=== PATIENT | male | born 1970 | race Caucasian/White ===

== ENCOUNTER 2016-10-04 20:23 | Emergency (ER) | payer BC ==
[2016-10-04 21:15] LABS: Urine Bilirubin Negative (Negative); Urine Glucose Negative (Negative); Urine Nitrite Negative (Negative)
[2016-10-04 21:53] LABS: Hematocrit 44 % (42-52); Mean Corpuscular HGB Conc 34 g/dl (31-36); Mean Corpuscular Hemoglobin 29 pg (27-31); Mean Corpuscular Volume 85 fL (80-94); Mean Platelet Volume 9 um3 (7.4-10.4); Red Blood Count 5.21 10^6/ul (4.0-5.4); Red Cell Distribution Width 14 % (10.5-15); White Blood Count 7.3 10^3/ul (3.5-10.8)
[2016-10-04] MEDS ORDERED: Ondansetron INJ* 2 MG/ML VIAL IV ONE (21:58)
[2016-10-04] MEDS ORDERED: NS 0.9% 1000 ML* 1,000 ML IV ONE (21:58)
[2016-10-04] MEDS ORDERED: Ondansetron INJ* 2 MG/ML VIAL ONE (22:06)
[2016-10-04 22:07] LABS: Albumin 4.3 g/dL (3.2-5.2); BUN/Creatinine Ratio 19.5 (8-20); EGFR Non-African American 94.9 (>60); Globulin 2.9 g/dL (2-4); Potassium 3.9 mmol/L (3.5-5.0); Total Bilirubin 0.5 mg/dL (0.2-1.0); Total Protein 7.2 g/dL (6.4-8.9)
[2016-10-04] MEDS ORDERED: Morphine INJ* 4 MG/ML 1 ML SYRINGE IV ONE (22:28)
--- NOTE | 2016-10-04 23:06 | ED ---
Alanna Jacobs Alok, scribed for Wes Whitmore MD on 10/04/16 at 2217 . Abdominal Pain/Male - HPI Summary HPI Summary: 46M presents to the ED with RLQ abd pain off an on since 2 days ago. Pt states that this pain which has been coming and going worsened this evening to the point of making ambulation difficulty, prompting his visit to the ED. Pt states that his abd pain worsens with movement and states he has never experienced this abd pain before. Pt notes nausea but denies vomit. Pt denies loss of appetite. Pt has NKDA. - History of Current Complaint Chief Complaint: EDAbdPain Stated Complaint: ABD PAIN Time Seen by Provider: 10/04/16 22:11 Hx Obtained From: Patient Onset/Duration: Lasting Days, Still Present, Worse Since - Tonight Severity Initially: Moderate Severity Currently: Moderate Pain Intensity: 3 Pain Scale Used: 0-10 Numeric Location: Discrete At: RLQ Aggravating Factor(s): Movement Alleviating Factor(s): Nothing Associated Signs And Symptoms: Positive: Nausea. Negative: Fever, Vomiting - Allergies/Home Medications Allergies/Adverse Reactions: Allergies Allergy/AdvReac Type Severity Reaction Status Date / Time No Known Allergies Allergy Verified 04/22/15 07:32 PMH/Surg Hx/FS Hx/Imm Hx Endocrine/Hematology History: Denies: Hx Diabetes Cardiovascular History: Denies: Hx Hypertension, Hx Pacemaker/ICD History: Denies: Hx Renal Disease Sensory History: Denies: Hx Hearing Aid Psychiatric History: Denies: Hx Panic Disorder - Surgical History Surgery Procedure, Year, and Place: L4-5 DISKECTOMY Infectious Disease History: Denies: Traveled Outside the [place] in Last 30 Days - Family History Known Family History: Negative: Diabetes - Social History Occupation: Employed Full-time Lives: With Family Review of Systems Negative: Fever Positive: Abdominal Pain, Nausea. Negative: Vomiting All Other Systems Reviewed And Are Negative: Yes Physical Exam Triage Information Reviewed: Yes Vital Signs On Initial Exam: Initial Vitals Temp Pulse Resp BP 98.1 F 79 16 152/92 10/04/16 20:50 10/04/16 20:50 10/04/16 20:50 10/04/16 20:50 Vital Signs Reviewed: Yes Appearance: Positive: Well-Appearing, Pain Distress - mild discomfort Skin: Positive: Warm Head/Face: Positive: Normal Head/Face Inspection Eyes: Positive: KAYLA ENT: Positive: Hearing grossly normal Neck: Positive: Supple Respiratory/Lung Sounds: Positive: Breath Sounds Present Cardiovascular: Positive: RRR Abdomen Description: Positive: No Organomegaly, Soft, McBurney's Point Tenderness - mild Bowel Sounds: Positive: Present Musculoskeletal: Positive: Strength/ROM Intact Neurological: Positive: Alert, Oriented to Person Place, Time Diagnostics - Vital Signs Vital Signs Temp Pulse Resp BP Pulse Ox 10/04/16 21:45 97.5 F 56 20 148/68 99 10/04/16 20:50 98.1 F 79 16 152/92 - Laboratory Lab Results: Lab Results 10/04/16 10/04/16 10/04/16 Range/Units 21:00 21:36 21:36 WBC 7.3 (3.5-10.8) 10^3/ul RBC 5.21 (4.0-5.4) 10^6/ul Hgb 15.0 (14.0-18.0) g/dl Hct 44 (42-52) % MCV 85 (80-94) fL MCH 29 (27-31) pg MCHC 34 (31-36) g/dl RDW 14 (10.5-15) % Plt Count 178 (150-450) 10^3/ul MPV 9 (7.4-10.4) um3 Neut % (Auto) 65.8 (38-83) % Lymph % (Auto) 25.0 (25-47) % [place] % (Auto) 6.9 (1-9) % Eos % (Auto) 1.6 (0-6) % Baso % (Auto) 0.7 (0-2) % Absolute Neuts (auto) 4.8 (1.5-7.7) 10^3/ul Absolute Lymphs (auto) 1.8 (1.0-4.8) 10^3/ul Absolute Monos (auto) 0.5 (0-0.8) 10^3/ul Absolute Eos (auto) 0.1 (0-0.6) 10^3/ul Absolute Basos (auto) 0 (0-0.2) 10^3/ul Absolute Nucleated RBC 0.01 10^3/ul Nucleated RBC % 0.1 Sodium 138 (133-145) mmol/L Potassium 3.9 (3.5-5.0) mmol/L Chloride 105 (101-111) mmol/L Carbon Dioxide 28 (22-32) mmol/L Anion Gap 5 (2-11) mmol/L BUN 17 (6-24) mg/dL Creatinine 0.87 (0.67-1.17) mg/dL Est GFR ( Amer) 122.0 (>60) Est GFR (Non-Af Amer) 94.9 (>60) BUN/Creatinine Ratio 19.5 (8-20) Glucose 92 (70-100) mg/dL Calcium 9.0 (8.6-10.3) mg/dL Total Bilirubin 0.50 (0.2-1.0) mg/dL AST 27 (13-39) U/L ALT 39 (7-52) U/L Alkaline Phosphatase 46 (34-104) U/L Total Protein 7.2 (6.4-8.9) g/dL Albumin 4.3 (3.2-5.2) g/dL Globulin 2.9 (2-4) g/dL Albumin/Globulin Ratio 1.5 (1-3) Urine Color Yellow Urine Appearance Clear Urine pH 5.0 (5-9) Ur Specific Reading 1.020 (1.010-1.030) Urine Protein Negative (Negative) Urine Ketones Negative (Negative) Urine Blood Negative (Negative) Urine Nitrate Negative (Negative) Urine Bilirubin Negative (Negative) Urine Urobilinogen Negative (Negative) Ur Leukocyte Esterase Negative (Negative) Urine Glucose Negative (Negative) Result Diagrams: 10/04/16 21:36 10/04/16 21:36 Lab Statement: Any lab studies that have been ordered have been reviewed, and results considered in the medical decision making process. - CT abd/pel CT CT Interpretation: Positive (See Comments) - IMPRESSION: Mild cecal inflammation and/or terminal ileitis versus epiploic appendagitis at the base of the cecum. Normal appendix. Fatty liver. Punctate left renal stone. CT Interpretation Completed By: Radiologist Re-Evaluation - Re-Evaluation First Eval Re-Evaluation Time: 02:00 Change: Improved Comment: Discussed pt CT results Abdominal Pain Fem Course/Dx - Diagnoses Provider Diagnoses: Abdominal pain Discharge - Discharge Plan Condition: Improved Disposition: HOME Patient Education Materials: Abdominal Pain (ED) Referrals: Alton Ferguson MD [Primary Care Provider] - Additional Instructions: We recommend sticking to a bland diet The documentation as recorded by the Alanna herrera Alok accurately reflects the service I personally performed and the decisions made by me, eWs Wihtmore MD.
[2016-10-05] MEDS ORDERED: Iohexol 300* (CONTRAST) 10 ML SDV IV ONE (00:41)
[2016-10-05 02:50] VITALS: BP 127/83
--- NOTE | 2016-10-05 07:59 | RAD ---
CLINICAL HISTORY: Right lower quadrant pain COMPARISON: None TECHNIQUE: Contrast enhanced CT examination of the abdomen and pelvis from the lung bases through the initial tuberosities. The patient received 150 mL intravenously prior to imaging.The patient received oral contrast as well prior to imaging. FINDINGS: VISUALIZED LUNG BASES: The visualized lung bases are grossly clear. There is no pleural effusion. ABDOMEN AND PELVIS: In the dependent-most right lobe of the liver there is a 6 mm hypodensity that is incompletely characterized on this CT examination. Otherwise the liver parenchyma is homogenously hypodense relative to the spleen. The spleen, pancreas and adrenal glands are grossly normal in appearance. The gallbladder is normal. The kidneys are normal in appearance without focal mass, calcification or signs of hydronephrosis. The oral contrast has progressed as far as the rectum. The small and large bowel are not distended. The patient's normal appendix is identified in the right lower quadrant with contrast filling the lumen (image 119). There is a small amount of infiltration of the fat with a trace fluid collection along the anterior margin of the dependent cecum (axial image 126 and sagittal image 51). Within this area of inflammation is a 1.3 cm focus of fat density. There is no thickening of the cecal wall and no lymphadenopathy. Scattered rectosigmoid diverticula are seen but there is no focal inflammatory change of the distal colon. There is no gross retroperitoneal or mesenteric lymphadenopathy. The pelvic viscera is normal in appearance. There is a fat-containing wall hernia in the left. The abdominal aorta and iliac arteries are normal in course and diameter. Degenerative changes include multilevel loss of intervertebral disc height involving the lower thoracic and lumbar spine.There are no sinister bone lesions. IMPRESSION: 1. CT findings are most consistent with epiploic appendicitis at the base of the cecum. The appendix is normal. 2. Likely hepatic steatosis or other chronic infiltrative disease of the liver. 3. Additional chronic and degenerative changes described in body the report.
== END 2016-10-05 02:50 | disposition home or self-care (01) ==
LOC: ED 20:23
DX: R10.31 Right lower quadrant pain (principal); R11.0 Nausea
CPT/HCPCS: 36415; 74177; 80053; 81003; 85025; 99282; J2270; J2405; Q9967

== ENCOUNTER 2018-11-16 05:43 | Inpatient (IN) | payer BC ==
[~2018-11-16 05:43] MED LIST: Buffered Lidocaine 1% SYRIN* 1 ML/SYRINGE INTRADERM ONE
[2018-11-16] MEDS ORDERED: PROCHLORPERAZINE INJ 5 MG/ML 2 ML VIAL IV PRN (05:51)
[2018-11-16] MEDS ORDERED: Naloxone* 0.4 MG/ML 1 ML VIAL IV PRN (05:51)
[2018-11-16] MEDS ORDERED: DiMENhydriNATE IV* 50 MG/ML VIAL IV PUSH PRN (05:51)
[2018-11-16] MEDS ORDERED: Dexamethasone IV* 4 MG/ML 1 ML (4 MG) ONE (05:57)
[2018-11-16] MEDS ORDERED: ceFAZolin 1 GM ADVAN(*) 1 GM ADDV.VIAL IVPB ONE (05:57)
[2018-11-16] MEDS ORDERED: Famotidine IV* 10 MG/ML 2 ML (20 mg) ONE (05:57)
[2018-11-16] MEDS ORDERED: Ondansetron INJ* 2 MG/ML VIAL ONE (05:57)
[2018-11-16] MEDS ORDERED: Scopolamine 1.5 mg* PATCH ONE (05:57)
[2018-11-16] MEDS ORDERED: Heparin VIAL(*) 5000 UNITS/ML VIAL (FIVE THOUSAND) ONE (05:58)
[2018-11-16] MEDS ORDERED: ceFAZolin 2 GM in NS PREMIX(*) 2 GM/100 ML BAG IVPB ONE (05:58)
[2018-11-16] MEDS ORDERED: Scopolamine 1.5 mg* PATCH TRANSDERM ONE (06:00)
[2018-11-16] MEDS ORDERED: Dexamethasone IV* 4 MG/ML 1 ML (4 MG) IV SLOW PU ONE (06:00)
[2018-11-16] MEDS ORDERED: Lactated Ringers 1000 ML Bag* 1,000 ML IV SCH (06:00)
[2018-11-16] MEDS ORDERED: Ondansetron INJ* 2 MG/ML VIAL IV ONE (06:00)
[2018-11-16] MEDS ORDERED: Famotidine IV* 10 MG/ML 2 ML (20 mg) IV ONE (06:00)
[2018-11-16] MEDS ORDERED: Bupivacaine 0.25% EPI 200,000* 30 ML SDV ONE ×2 (06:57→07:41)
[2018-11-16] MEDS ORDERED: fentaNYL* 50 MCG/ML 5 ML VIAL (250 MCG VIAL) ONE (07:28)
[2018-11-16] MEDS ORDERED: KETAMINE HCL* 50 MG/ML 10 ML VIAL ONE (07:28)
[2018-11-16] MEDS ORDERED: Rocuronium* 10 MG/ML VIAL ONE (07:28)
[2018-11-16] MEDS ORDERED: Midazolam* 1 MG/ML 5 ML VIAL (5 MG) ONE (07:28)
[2018-11-16] MEDS ORDERED: Sugammadex * 200 MG/2 ML VIAL IV PUSH ONE (08:04)
[2018-11-16] MEDS ORDERED: EPHEDrine (Pressors)* 50 MG/ML VIAL ONE (09:27)
[2018-11-16] MEDS ORDERED: Propofol* 10 MG/ML 20 ML BTL ONE (09:27)
[2018-11-16] MEDS ORDERED: Acetaminophen IV 1GM/100ML * 100 ML ONE (09:27)
[2018-11-16] MEDS ORDERED: Glycopyrrolate IV* 0.2 MG/ML 1 ML VIAL ONE ×2 (09:27→10:39)
[2018-11-16] MEDS ORDERED: Lidocaine 2% PF * 5 ML VIAL ONE (09:27)
[2018-11-16] MEDS ORDERED: diPHENhydraMINE IV* 50 MG/ML 1 ml VIAL (BENADRYL) SLOW PUSH PRN (09:42)
[2018-11-16] MEDS ORDERED: HYDROmorphone INJ1* 1 MG/ML SYRINGE IV SLOW PU PRN (09:49)
[2018-11-16] MEDS ORDERED: fentaNYL* 50 MCG/ML 2 ML VIAL (100 MCG VIAL) ONE (09:55)
[2018-11-16] MEDS ORDERED: Ketorolac INJ* 30 MG/ML 1 ML VIAL ONE (09:55)
[2018-11-16] MEDS: Ketorolac INJ* 30 MG/ML 1 ML VIAL IV SCH ×3 (09:57→21:52)
[2018-11-16] MEDS: fentaNYL* 50 MCG/ML 2 ML VIAL (100 MCG VIAL) IV PRN ×2 (10:11→10:44)
[2018-11-16] MEDS ORDERED: HYDROmorphone INJ1* 1 MG/ML SYRINGE ONE (10:53)
[2018-11-16] MEDS: HYDROmorphone INJ1* 1 MG/ML SYRINGE IV PRN ×2 (11:02→11:28)
[2018-11-16] MEDS ORDERED: DiMENhydriNATE IV* 50 MG/ML VIAL ONE (12:11)
[2018-11-16] MEDS: Lactated Ringers 1000 ML Bag* 1,000 ML IV SCH ×2 (12:46→19:44)
[2018-11-16] MEDS: Ondansetron INJ* 2 MG/ML VIAL IV PRN ×2 (13:42→21:06)
[2018-11-16] MEDS: HYDROmorphone INJ* 0.5 MG/0.5 ML SYRINGE IV SLOW PU PRN ×2 (13:43→17:11)
[2018-11-16] MEDS: Heparin VIAL(*) 5000 UNITS/ML VIAL (FIVE THOUSAND) SUBCUT SCH ×2 (13:45→21:54)
[2018-11-16] MEDS: Famotidine IV* 10 MG/ML 2 ML (20 mg) IV SLOW PU SCH (21:13)
--- NOTE | 2018-11-16 22:30 | OP ---
CC: [facility]; Dr. Alton Ferguson * DATE OF OPERATION: 11/16/18 - ROOM #352 DATE OF : 72 PRIMARY CARE DOCTOR: Dr. Alotn Ferguson. SURGEON: Herbert Alvarenga MD CABLE ENGINEER OUTSIDE PLANT: Nuvia Castro NP ANESTHESIOLOGIST: Dr. Moise. ANESTHESIA: General anesthesia. PRE-OP DIAGNOSES: 1. Clinically severe obesity. 2. Obstructive sleep apnea. 3. Hypertension. POST-OP DIAGNOSES: 1. Clinically severe obesity. 2. Obstructive sleep apnea. 3. Hypertension. OPERATIVE PROCEDURE: Laparoscopic sleeve gastrectomy. BLOOD LOSS: Minimal blood loss. FLUIDS: Minimal crystalloid fluid given. SPECIMEN: Portion of stomach. DRAINS: None. DESCRIPTION OF PROCEDURE: The patient was identified in the preoperative area. Consent was signed. He was marked. We discussed the case again at that time. The patient agreed to proceed. The patient was taken to the operating room, placed on the operating room table in supine position. Preoperative antibiotics were given. Sequential devices were placed on bilateral extremities. General anesthesia was induced. The patient's abdomen was clipped of hair and prepped and draped in standard surgical fashion. Time-out was performed. Folds of the umbilicus were elevated anteriorly and a Veress needle inserted into the abdominal cavity, which was then allowed to insufflate to a pressure of 15 mmHg. The patient tolerated the insufflation well. [place] between the xiphoid and umbilicus, just left of midline, a 12 mm optical trocar was then inserted. Laparoscope was inserted through this and there was no evidence of injury from the trocar insertion or from the Veress needle, which was then removed. Additional trocars were then placed in the following positions: Two 5 mm in the left upper quadrant and a 12 mm in the right upper quadrant. Review of the abdomen showed normal-appearing liver and no free fluid, no other findings. Table was placed in a steep reverse Trendelenburg. A Renetta retractor was inserted through a subxiphoid incision and the liver was retracted anteriorly and somewhat to the right to expose the gastroesophageal fat pad and the fat pad was grasped and retracted towards the right lower quadrant. Blunt dissection was carried out to free this up from the diaphragm to appreciate the gastroesophageal ligament. We could appreciate the portion of the left crura. There appeared to be no hiatal hernia at this site. Next, a retrogastric tunnel was made at approximately 5 cm proximal to the pylorus. LigaSure device was used to take the vasculature of the greater curvature right up to the angle of His that had previously been dissected. Posterior attachments were significant and taken as well until I can completely rotate the stomach. Again, no evidence of hiatal hernia was identified at this site. The posterior stomach as protected throughout. Next, a sleeve stomach was created using 60 mm purple VEUN staplings with reinforcement strips, starting along the greater curvature, 4 cm proximal to the pylorus and extending this towards the incisura. Prior to firing this, a 40 -Indian bougie was inserted distal to this into the antrum. The sleeve stomach was completed with 4 additional similar loads, keeping a straight line and making sure we stayed tight to the bougie with good orientation. The resected portion of the stomach was then placed in an endoscopic retrieval bag. The staple edge appeared intact without bleeding. Review of the spleen and liver showed no evidence of bleeding as well. The Renetta retractor was removed and the liver fell on to the sleeve stomach almost obscuring the entire remaining stomach. Next, the specimen was taken through the right upper quadrant incision site, which was then closed in the fascia layer with 0 Vicryl suture with a Weck device. The abdomen was allowed to collapse. The trocars were removed under direct vision and all incisions were reapproximated with 4-0 Monocryl subcuticular sutures followed by Steri-Strips and sterile dressing. The patient tolerated the procedure well, was woken up in the OR and transferred to the PACU in stable condition. [id number]/[facility] #: [id number] FRANCA
[2018-11-17] MEDS: Lactated Ringers 1000 ML Bag* 1,000 ML IV SCH (02:24)
[2018-11-17] MEDS: Ketorolac INJ* 30 MG/ML 1 ML VIAL IV SCH ×4 (03:47→21:52)
[2018-11-17] MEDS: Heparin VIAL(*) 5000 UNITS/ML VIAL (FIVE THOUSAND) SUBCUT SCH ×3 (06:11→21:53)
[2018-11-17] MEDS: HYDROmorphone INJ* 0.5 MG/0.5 ML SYRINGE IV SLOW PU PRN ×2 (07:17→13:47)
[2018-11-17] MEDS: Ondansetron INJ* 2 MG/ML VIAL IV PRN ×2 (07:27→13:48)
[2018-11-17] MEDS: D5W 1/2 NS KCl 20 Meq 1000 ML* 1,000 ML IV SCH ×2 (09:19→17:59)
[2018-11-17] MEDS: Famotidine IV* 10 MG/ML 2 ML (20 mg) IV SLOW PU SCH ×2 (09:20→21:52)
--- NOTE | 2018-11-17 09:43 | PN ---
Progress Note - Progress Note Date of Service: 11/17/18 SOAP: Subjective: sleeve gastrectomy. Abdo pain. nausea overnight. some vomiting. Objective: Temp Pulse Resp BP Pulse Ox 98.6 F 47 16 125/69 97 11/17/18 07:45 11/17/18 07:45 11/17/18 08:17 11/17/18 07:45 11/17/18 07:45 Intake & Output 11/16/18 11/17/18 11/17/18 22:59 06:59 14:59 Intake Total 186 101 5322 Output Total 700 655 350 Balance 280 326 662 a and o x3, nad lungs clear abdo: soft/ ND/ min tenderness dressing intact ext wnl UGI p Assessment: POD 1 sleeve gastrectomy, HD stable Plan: UGI ambulate GI, DVT proph
[2018-11-18] MEDS: D5W 1/2 NS KCl 20 Meq 1000 ML* 1,000 ML IV SCH ×3 (02:04→17:36)
[2018-11-18] MEDS: Ketorolac INJ* 30 MG/ML 1 ML VIAL IV SCH (03:51)
[2018-11-18] MEDS: Heparin VIAL(*) 5000 UNITS/ML VIAL (FIVE THOUSAND) SUBCUT SCH ×3 (05:30→22:08)
[2018-11-18] MEDS: Famotidine IV* 10 MG/ML 2 ML (20 mg) IV SLOW PU SCH ×2 (09:47→21:08)
[2018-11-18] MEDS ORDERED: HYDROmorphone INJ* 0.5 MG/0.5 ML SYRINGE IV SLOW PU PRN (12:53)
[2018-11-18] MEDS: HYDROcodone/ACET. 7.5/325 LIQ* 15 ML UDC PO PRN ×2 (13:13→20:52)
--- NOTE | 2018-11-18 18:15 | PN ---
Progress Note - Progress Note Date of Service: 11/18/18 SOAP: Subjective: Patient seen and examined earlier today and again just now. Patient still feeling some abdominal pain that is treated with narcotics. Intermittent nausea. Tolerating by mouth liquids. Positive loose bowel movement. Objective: Afebrile vital signs are stable Lungs clear to auscultation bilaterally Abdomen: Soft, nondistended, minimal right upper quadrant tenderness. Dressings removed and Steri-Strips intact. No redness. Extremities normal limits Upper GI reviewed and normal Assessment: Postop day two sleeve gastrectomy. Hemodynamically stable. Poor by mouth intake. Plan: Encourage by mouth intake. Out of bed and ambulation. Incentive spirometer. GI and DVT prophylaxis.
[2018-11-19] MEDS: D5W 1/2 NS KCl 20 Meq 1000 ML* 1,000 ML IV SCH (01:40)
[2018-11-19] MEDS: HYDROcodone/ACET. 7.5/325 LIQ* 15 ML UDC PO PRN ×2 (02:53→09:11)
[2018-11-19] MEDS ORDERED: Scopolamine PATCH Remove* 1 NOTE MISC PATCH OFF ONE (06:00)
[2018-11-19] MEDS: Heparin VIAL(*) 5000 UNITS/ML VIAL (FIVE THOUSAND) SUBCUT SCH (06:04)
[2018-11-19 08:02] VITALS: BP 141/87
[2018-11-19] MEDS: Famotidine IV* 10 MG/ML 2 ML (20 mg) IV SLOW PU SCH (09:12)
--- NOTE | 2018-11-19 11:23 | DS ---
CC: Dr. Alton Ferguson; [facility]. DISCHARGE SUMMARY: DATE OF ADMISSION: DATE OF DISCHARGE: 11/19/18 HOSPITAL COURSE: Mr. Carrillo is a 48-year-old gentleman who was admitted on the same day of surgery an d underwent laparoscopic sleeve gastrectomy for diagnosis of clinically severe obesity and obstructiv e sleep apnea. Please see the operative report for details. In the postoperative course, the patien t was transferred to PACU and on to short-stay surgical unit. The patient was evaluated on postoperative day 1, underwent an upper GI study, which showed good pass age of contrast and he was started on a p.o. diet. The patient had significant pain through postoperative day 1 and 2 along with nausea and episode of v omiting. He was treated accordingly and by postoperative day 2 showed minimal improvement with fair p.o. intake. For this reason, the patient was kept another day. He had been ambulatory, tolerating minimal p.o. fluids with good urine output. By postoperative day 3, the patient was improving, tolerating better p.o. and was ready for discharge . PHYSICAL EXAMINATION: On the day of discharge, physical exam was performed. The patient was afebril e, vital signs stable, alert and oriented x3, in no apparent distress. Lungs are clear to auscultati on bilaterally. Abdomen is soft. Minimal distension, minimal tenderness at the right upper quadrant . Steri-Strips in place. No erythema and extremities within normal limits. PLAN: Postoperative day 3, sleeve gastrectomy, discharged home with close followup next week in my o ffice. He will resume his preoperative medications along with an addition of omeprazole 40 mg daily. The patient is aware of this and understands to contact our office should there be any change in hi s status. [id number]/[facility] #: [id number]
== END 2018-11-19 10:45 | disposition home or self-care (01) | DRG 403 ==
LOC: AA 05:43 → SSU 09:42
PROVIDERS: ADMIT Surgery; ATTEND Surgery
PROC: 0DB64Z3 Excision of Stomach, Percutaneous Endoscopic Approach, Vertical (ICD-10-PCS; principal; 2018-11-16 07:30)
DX: E66.01 Morbid (severe) obesity due to excess calories (principal); G47.33 Obstructive sleep apnea (adult) (pediatric); R11.2 Nausea with vomiting, unspecified; I10 Essential (primary) hypertension; H90.2 Conductive hearing loss, unspecified; K76.0 Fatty (change of) liver, not elsewhere classified; K21.9 Gastro-esophageal reflux disease without esophagitis; Z68.39 Body mass index [BMI] 39.0-39.9, adult; Z82.0 Family history of epilepsy and other diseases of the nervous system; Z82.49 Family history of ischemic heart disease and other diseases of the circulatory system; Z83.3 Family history of diabetes mellitus; Z80.8 Family history of malignant neoplasm of other organs or systems; Z87.891 Personal history of nicotine dependence
CPT/HCPCS: 43775; 74246; 88307; A9270-GY; J0690; J1100; J1170; J1240; J1644; J1885; J2250; J2405; J2704; J3010

== ENCOUNTER 2019-01-07 01:27 | Emergency (ER) | payer BC ==
[2019-01-07] MEDS ORDERED: Ondansetron INJ* 2 MG/ML VIAL IV ONE (02:18)
[2019-01-07] MEDS ORDERED: NS 0.9% 1000 ML** 1,000 ML IV ONE (02:18)
[2019-01-07] MEDS ORDERED: Morphine 10 MG/ML VIAL (1 ml) IV ONE (02:18)
[2019-01-07] MEDS ORDERED: Ketorolac INJ* 30 MG/ML 1 ML VIAL IV PUSH ONE (02:18)
[2019-01-07 02:30] LABS: Urine Appearance Cloudy; Urine Bacteria Absent (Absent); Urine Bilirubin Negative (Negative); Urine Blood Negative (Negative); Urine Color Yellow; Urine Glucose Negative (Negative); Urine Ketones 2+ (Negative); Urine Nitrite Negative (Negative); Urine Protein Negative (Negative); Urine Red Blood Cell Absent (Absent); Urine Specific Gravity 1.018 (1.010-1.030); Urine Urobilinogen Negative (Negative); Urine White Blood Cell Trace(0-5/hpf) (Absent)
--- NOTE | 2019-01-07 02:58 | ED ---
GI/ HPI - HPI Summary HPI Summary: This patient is a 48 year old male presenting to [facility] with a chief complaint of left flank pain. He states the pain woke him up 2 hours ago. He reports nausea, diaphoresis, and urinary retention. He states he has never had kidney stones before and never felt this pain. He rates his pain 7/10 in severity. He states gastric sleeve surgery on 11/16/[address] Alvarenga. - History of Current Complaint Chief Complaint: EDFlankPain Time Seen by Provider: 01/07/19 02:18 Stated Complaint: R FLANK PAIN PER PT Hx Obtained From: Patient Onset/Duration: Started Hours Ago Pain Intensity: 7 - Additional Pertinent History Primary Care Physician: JORDI - Allergy/Home Medications Allergies/Adverse Reactions: Allergies Allergy/AdvReac Type Severity Reaction Status Date / Time No Known Allergies Allergy Verified 01/07/19 01:40 PMH/Surg Hx/FS Hx/Imm Hx Endocrine/Hematology History: Denies: Hx Diabetes Cardiovascular History: Denies: Hx Hypertension, Hx Pacemaker/ICD Respiratory History: Reports: Hx Sleep Apnea GI History: Denies: Other GI Disorders History: Denies: Hx Dialysis, Hx Renal Disease Sensory History: Reports: Hx Contacts or Glasses Denies: Hx Hearing Aid Opthamlomology History: Reports: Hx Contacts or Glasses Psychiatric History: Denies: Hx Panic Disorder - Cancer History Hx Chemotherapy: No - Surgical History Surgery Procedure, Year, and Place: L4-5 DISKECTOMY Hx Anesthesia Reactions: No Infectious Disease History: No Infectious Disease History: Denies: Traveled Outside the [place] in Last 30 Days - Family History Known Family History: Negative: Diabetes - Social History Alcohol Use: None Substance Use Type: Reports: None Smoking Status (MU): Never Smoked Tobacco Review of Systems Positive: Skin Diaphoresis Positive: Nausea Positive: flank pain, urgency All Other Systems Reviewed And Are Negative: Yes Physical Exam Vital Signs On Initial Exam: Initial Vitals Temp Pulse Resp BP Pulse Ox 97.5 F 51 22 155/96 100 01/07/19 01:37 01/07/19 01:37 01/07/19 01:37 01/07/19 01:37 01/07/19 01:37 Procedures - Sedation Patient Received Moderate/Deep Sedation with Procedure: No Diagnostics - Vital Signs Vital Signs Temp Pulse Resp BP Pulse Ox 01/07/19 01:37 97.5 F 51 22 155/96 100 - Laboratory Lab Results: Lab Results 01/07/19 Range/Units 02:08 Urine Color Yellow Urine Appearance Cloudy Urine pH 7.0 (5-9) Ur Specific [place] 1.018 (1.010-1.030) Urine Protein Negative (Negative) Urine Ketones 2+ A (Negative) Urine Blood Negative (Negative) Urine Nitrate Negative (Negative) Urine Bilirubin Negative (Negative) Urine Urobilinogen Negative (Negative) Ur Leukocyte Esterase Negative (Negative) Urine WBC (Auto) Trace(0-5/hpf) (Absent) Urine RBC (Auto) Absent (Absent) Urine Bacteria Absent (Absent) Urine Glucose Negative (Negative) Urine Ascorbic Acid * A (Negative) Result Diagrams: 01/07/19 03:40 01/07/19 03:40 Lab Statement: Any lab studies that have been ordered have been reviewed, and results considered in the medical decision making process. - CT Abd/Pel CT Interpretation Completed By: Radiologist Summary of CT Findings: 1. Left ureterovesical junction calculus with mild hydroureternephrosis. 2. Nonobstructing left renal calculi. 3. Small hepatic lesions, too small to characterize. 4. Status post gastric sugery. 5. Conolic diveritulosis. ED Provider has reviewed this report. GIGU Course/Dx - Course Course Of Treatment: This patient is a 48 year old male presenting to [facility] with a chief complaint of left flank pain. CT Abd/Pelvis reveals. 1. Left ureterovesical junction calculus with mild hydroureternephrosis. 2. Nonobstructing left renal calculi. 3. Small hepatic lesions, too small to characterize. 4. Status post gastric sugery. 5. Conolic diveritulosis. The patient will be prescribe Oxycodone and Ondansetron and discharged. The plan was discussed with e patient and he was agreeable with this plan. - Diagnoses Provider Diagnoses: Kidney stones Discharge ED - Sign-Out/Discharge Documenting (check all that apply): Patient Departure - Discharge - Discharge Plan Condition: Stable Disposition: HOME Prescriptions: Ondansetron ODT TAB* [Zofran 4 MG Odt TAB*] 8 mg PO Q6H PRN #12 tab.odt PRN Reason: Nausea oxyCODONE/Acetamin 5/325 MG* [Percocet 5/325 TAB*] 2 tab PO Q4H PRN #15 tab MDD 6 PRN Reason: Pain - Moderate Patient Education Materials: Kidney Stones (ED) Referrals: Antony Harvey MD [Medical Doctor] - - Billing Disposition and Condition Condition: STABLE Disposition: Home - Attestation Statements Document Initiated by Scribe: Yes Documenting Scribe: Shan Guerrier Provider For Whom Scribe is Documenting (Include Credential): Stu Mallory MD Scribe Attestation: IShan, scribed for Stu Mallory MD on 01/11/19 at 1811. Scribe Documentation Reviewed: Yes Provider Attestation: The documentation as recorded by the Shan herrera accurately reflects the service I personally performed and the decisions made by me, Stu Mallory MD Status of Scribe Document: Viewed
[2019-01-07 03:54] LABS: ABS Lymphocytes 0.6 10^3/ul (1.0-4.8); ABS Monocytes 0.4 10^3/ul (0-0.8); Eosinophil % 0.2 %; Hematocrit 38 % (42-52); Hemoglobin 12.6 g/dL (14.0-18.0); Lymphocyte % 9.4 %; Mean Corpuscular HGB Conc 34 g/dL (31-36); Mean Corpuscular Hemoglobin 28 pg (27-31); Mean Corpuscular Volume 84 fL (80-94); Mean Platelet Volume 9.6 fL (7.4-10.4); Platelet Count 127 10^3/uL (150-450); Red Blood Count 4.48 10^6 /uL (4.18-5.48); Red Cell Distribution Width 15 % (10-15)
[2019-01-07 04:09] LABS: Albumin/Globulin Ratio 2.1 (1-3); BUN/Creatinine Ratio 20.2 (8-20); Calcium 8.3 mg/dL (8.6-10.3); EGFR African American 110.9 (>60); EGFR Non-African American 91.6 (>60); Globulin 1.9 g/dL (2-4); Potassium 3.5 mmol/L (3.5-5.0); Total Bilirubin 0.7 mg/dL (0.2-1.0); Total Protein 5.9 g/dL (6.4-8.9)
[2019-01-07 05:12] VITALS: BP 123/68
== END 2019-01-07 05:24 | disposition home or self-care (01) ==
LOC: ED 01:27
DX: N13.2 Hydronephrosis with renal and ureteral calculous obstruction (principal); K57.30 Diverticulosis of large intestine without perforation or abscess without bleeding; Z98.84 Bariatric surgery status
CPT/HCPCS: 36415; 74176; 80053; 81003; 85025; 87086; 96361; 96374; 96375; 99283; J1885; J2270; J2405